=== PATIENT | female | born 1980 | race Caucasian/White ===

== ENCOUNTER 2017-02-26 15:04 | Emergency (ER) | payer MEDICAID ==
[2017-02-26 16:01] LABS: Urine Bilirubin Negative (NEGATIVE); Urine Blood 250 /ul (NEGATIVE); Urine Ketone Negative (NEGATIVE); Urine Nitrite Negative (NEGATIVE); Urine Protein Negative (NEGATIVE); Urine Specific Gravity 1.025 SP.GR. (1.005-1.010); Urine Urobilinogen Normal (NORMAL); Urine pH 5.5 pH (5.0-7.0)
[2017-02-26 16:13] LABS: Urine Appearance Cloudy; Urine Color Yellow
[2017-02-26 16:14] LABS: Urine Amorphous Sediment Few - 1+ (NONE-FEW); Urine Bacteria 1+; Urine WBC 0-5 /hpf (0-5)
--- NOTE | 2017-02-26 16:19 | ERNOTE ---
Back Pain ER HPI Time Seen by Provider: 02/26/17 15:36 Source: patient Exam Limitations: no limitations Immunizations: IMMUNIZATION HX Immunizations Up to Date Yes History of Influenza Vaccine No Allergies/Adverse Reactions: Allergies Penicillins Adverse Reaction (Verified 02/26/17 15:38) Home Medications: HOME MEDICATIONS Cyclobenzaprine HCl 10 mg PO PRN 02/26/17 [Last Taken Unknown] HYDROcodone/ACETAMINOPHEN [[place] 5-325] 1 - 2 tab PO QID PRN #12 tab 02/26/17 [ Last Taken Unknown] Hydrochlorothiazide [Hydrodiuril] 25 mg PO DAILY 02/26/17 [Last Taken Unknown] Hydroxyzine HCl 50 mg PO HS 02/26/17 [Last Taken Unknown] Levothyroxine Sodium [Levo-T] 88 mcg PO DAILY 02/26/17 [Last Taken Unknown] Lisdexamfetamine Dimesylate [Vyvanse] 40 mg PO DAILY 02/26/17 [Last Taken Unknown] Omeprazole [Prilosec] 20 mg PO DAILY 02/26/17 [Last Taken Unknown] Oxybutynin Chloride [Ditropan Xl] 10 mg PO DAILY 02/26/17 [Last Taken Unknown] Propranolol HCl 80 mg PO DAILY 02/26/17 [Last Taken Unknown] Sertraline HCl [Zoloft] 50 mg PO DAILY 02/26/17 [Last Taken Unknown] Solifenacin Succinate [Vesicare] 10 mg PO DAILY 02/26/17 [Last Taken Unknown] Sulfamethoxazole/Trimethoprim [Bactrim Ds] 1 tab PO BID #28 tab 02/26/17 [Last Taken Unknown] - Patient's Past Medical History Patient History - Medical: Seizures Patient History - Cardiac/Respiratory: Arrhythmias Patient History - Cancer: No Hx of Cancer Patient History - Surgical Procedures: Cholecystectomy, Total Knee Replacement, T & A Patient History - Other: None LMP (females 10-50): this week - Social History Living Situations: spouse Abuse History: Hx of Substance Use Smoking Status: Former smoker Alcohol Use: none Drug Use: none - Immunizations Immunizations Up to Date: Yes History of Influenza Vaccine: No ED Progress - Vital Signs Vital Signs: Vital Signs 02/26/17 15:31 Temperature 36.7 C Pulse Rate 90 Respiratory 18 Rate Blood Pressure 144/81 O2 Sat by Pulse 100 Oximetry - Progress/Reassessment Chief Complaint: Back Pain Departure Clinical Impression: Pyelonephritis - Departure Disposition: Home self-care Condition: Good Instructions: Pyelonephritis, Adult, [id number] Additional Instructions: Please drink plenty of fluids and follow-up in this ER if you don't get better in 48 hours or go see her primary care doctor. Prescriptions: HYDROcodone/ACETAMINOPHEN [[place] 5-325] 1 - 2 tab PO QID PRN #12 tab PRN Reason: Pain Sulfamethoxazole/Trimethoprim [Bactrim Ds] 1 tab PO BID #28 tab
--- OUTSIDE RECORDS SUMMARY | 2017-02-26 16:28 | XMS REPORT | Continuity of Care Document ---
:1980 Author Organization [employer] [facility] [place] [address] Care Team Providers Name Role Phone Phuong Monroy Primary Care Provider [phone] Source Comments This disclosure is being made pursuant to the [employer] program and maynot contain all information available regarding this patient.[facility] Active Allergies and Adverse Reactions Allergen Noted Date Severity Reactions Comments Penicillin G 11/01/2013 High Anaphylaxis Current Medications Be aware that medications may not be up to date as of this document. Alwaysverify current medications with the patient. Prescription Sig. Disp. Refills Start End Date Status Date omeprazole (PRILOSEC) TAKE ONE 30 capsule 5 Active 20 MG capsule CAPSULE BY 6 MOUTH ONCE DAILY IN THE MORNING BEFORE BREAKFAST levothyroxine TAKE ONE 30 tablet 5 Active (SYNTHROID, LEVOTHROID) TABLET BY 6 88 MCG tablet MOUTH ONCE DAILY (DUE FOR LABS) VESICARE 10 MG tablet TAKE ONE 30 tablet 5 Active TABLET BY 6 MOUTH ONCE DAILY hydrOXYzine pamoate TAKE THREE 90 capsule 0 Active (VISTARIL) 25 MG CAPSULES BY 7 capsule MOUTH AT BEDTIME sertraline (ZOLOFT) 50 Take 1 tablet 90 tablet 1 Active MG tablet by mouth 7 daily. Multiple Take 1 tablet Active Vitamins-Minerals by mouth (MULTIVITAMIN ADULT PO) daily. hydrochlorothiazide Take 1 tablet 30 tablet 2 Active (HYDRODIURIL) 25 MG by mouth 7 tablet daily. lisdexamfetamine Take 1 30 capsule 0 Active (VYVANSE) 50 MG capsule capsule (50 7 mg total) by mouth every morning. cyclobenzaprine TAKE ONE 30 tablet 0 Active (FLEXERIL) 10 MG tablet TABLET BY 7 MOUTH THREE TIMES DAILY NEEDED FOR MUSCLE SPASM propranolol (INDERAL) Take 1 tablet 60 tablet 1 Active 80 MG tablet by mouth 7 daily. propranolol (INDERAL) TAKE ONE 60 tablet 0 02/11/20 Discontinued 80 MG tablet TABLET BY 7 17 MOUTH ONCE DAILY cyclobenzaprine Take 1 tablet 30 tablet 0 02/11/20 Discontinued (FLEXERIL) 10 MG tablet by mouth 3 7 17 (three) times daily as needed. TAKE FOR MUSCLE SPASM Active Problems Problem Noted Date Gastroesophageal reflux disease without esophagitis 02/13/2016 Recurrent major depressive disorder, in partial remission ([facility]) 02/13/2016 Urge and stress incontinence 01/09/2016 Morbid obesity with BMI of 50.0-59.9, adult ([facility]) 03/15/2015 ADHD (attention deficit hyperactivity disorder) 12/27/2014 Insomnia 12/27/2014 Acquired hypothyroidism 06/05/2013 Overview: Identified By: Phuong Cabrales Palpitations 05/31/2013 Overview: Identified By: Phuong Monroy Anxiety state 02/24/2012 Overview: Identified By: Phuong Monroy Esophageal reflux 02/12/2009 Overview: Identified By: Surinder Umanzor Carpal tunnel syndrome 11/12/2008 Overview: Identified By: Phuong Monroy Most Recent Encounters Date Type Specialty Providers Description 02/24/2017 Telephone Family Medicine Lizeth Cole RN Care Coordination 02/10/2017 Refill Family Medicine Phuong Cabrales, G[employer]MENT [employer]ER 02/10/2017 Refill Family Medicine Phuong Monroy MD 01/19/2017 Telephone Family Medicine Phuong Cabrales, Medication Refill [facility] 12/01/2016 Office Visit Family Medicine Phuong Monroy MD Morbid obesity with BMI of 50.0-59.9, adult ([facility]) (Primary Dx); Attention deficit hyperactivity disorder (ADHD), combined type Social History Tobacco Use Types Packs/Day Years Used Date Former Smoker Quit: 09/27/2011 Smokeless Tobacco: Never Used Alcohol Use Drinks/Week oz/Week Comments Yes occasionally Last Filed Vital Signs Vital Sign Reading Time Taken Blood Pressure 116/74 12/01/2016 10:38 AM HOME STAGER Pulse 84 12/01/2016 10:38 AM HOME STAGER Temperature 36.7 C (98 F) 12/01/2016 10:38 AM HOME STAGER Respiratory Rate 20 12/01/2016 10:38 AM HOME STAGER Height 1.651 m (5' 5") 12/01/2016 10:38 AM HOME STAGER Weight 140.388 kg (309 lb 8 oz) 12/01/2016 10:38 AM HOME STAGER Body Mass Index 51.5 12/01/2016 10:38 AM HOME STAGER Oxygen Saturation 98% 12/01/2016 10:38 AM HOME STAGER Plan of Care Patient Goal Type Goal Exercise Exercise 3x per week (30 min per time) Blood Pressure Blood Pressure below 140/90 Health Maintenance Due Date Last Done Comments Tetanus/Pertussis (1 - Tdap) 1998 Pap Smear 2000 Influenza Immunization (#1) 2016 Results from Last 3 Months Not on file
[2017-02-26] MEDS ORDERED: KETOROLAC TROMETHAMINE 60 MG/2 ML VIAL IM ONE ×2 (16:29→16:32)
[2017-02-26 16:42] VITALS: BP 140/88
== END 2017-02-26 16:46 | disposition home or self-care (01) ==
LOC: ER 15:04
DX: N10 Acute pyelonephritis (principal); G40.409 Other generalized epilepsy and epileptic syndromes, not intractable, without status epilepticus

== ENCOUNTER 2017-06-11 10:57 | Emergency (ER) | payer MEDICAID ==
--- NOTE | 2017-06-11 11:38 | ERNOTE ---
GI Bleeding/Rectal Pain ER Date of Service: 06/11/17 Presenting Symptoms: rectal bleeding Time Seen by Provider: 06/11/17 11:26 Source: patient, family, RN notes reviewed Exam Limitations: no limitations Immunizations: IMMUNIZATION HX Immunizations Up to Date Yes History of Influenza Vaccine No Allergies/Adverse Reactions: Allergies Penicillins Adverse Reaction (Verified 06/11/17 11:27) Home Medications: HOME MEDICATIONS Amitriptyline HCl [Elavil] 10 mg PO HS 06/11/17 [Last Taken Unknown] Ferrous Sulfate 325 mg PO DAILY 06/11/17 [Last Taken Unknown] Hydrochlorothiazide [Hydrodiuril] 25 mg PO DAILY 06/11/17 [Last Taken Unknown] Hydrocortisone Acetate [Anusol Hc Suppository] 25 mg RC BID #12 supp.rect [Last Taken Unknown] Levothyroxine Sodium [Synthroid] 50 mcg PO DAILY 06/11/17 [Last Taken Unknown] Omeprazole 20 mg PO DAILY 06/11/17 [Last Taken Unknown] Sertraline HCl [Zoloft] 50 mg PO DAILY 06/11/17 [Last Taken Unknown] Narrative: 36 y/o female presents to the ED with rectal bleeding that began yesterday. She reports passing a large amount of blood and clots in the toilet when she had a bowel movement. She has been having loose stools for 3 days. She has also been having bloating and early satiety for over a month. She has continued to pass blood today, at times without stool. She denies rectal pain, but reports pressure and feeling like she has to have a bowel movement. Date (Duration): 06/10/17 Timing: intermittent Quality/Severity: Present: cramping Nausea/Vomiting: Present: other - Nausea, no vomiting Abdominal Pain: Present: diffuse Rectal Bleeding: Present: without stool, blood mixed with stool Associated Symptoms: Denies: maroon stools, black stools, tarry stools, constipation/hard stools, rectal pain Prior Treament: Denies: recently seen, similar symptoms before Review of Systems - Review of Systems Constitutional: Present: malaise. Absent: recent illness, fever, chills EYE: Present: no symptoms reported ENT: Present: no symptoms reported Respiratory: Absent: shortness of breath, cough Cardiology: Absent: chest pain, syncope Gastrointestinal/Abdominal: Present: nausea, diarrhea, abdominal pain, eating less, drinking less. Absent: vomiting, constipation Genitourinary: Absent: dysuria, decreased urinary output Musculoskeletal: Absent: muscle pain, joint pain Skin: Absent: rash, lesions Neurological: Absent: headache, dizziness/light-headedness Endocrine: Present: no symptoms reported Hematologic/Lymphatic: Absent: easy bruising, easy bleeding Psych: Present: no symptoms reported - Patient's Past Medical History Patient History - Medical: Bipolar, Seizures Patient History - Cardiac/Respiratory: Arrhythmias, Hypertension Patient History - Cancer: No Hx of Cancer Patient History - Surgical Procedures: Cholecystectomy, Total Knee Replacement, Tubal Ligation, T & A Patient History - Other: None LMP (females 10-50): s/p tubal ligation LMP (Calendar): 05/10/17 - Social History Living Situations: home Abuse History: Hx of Substance Use Psych History: Hx of Bipolar Disorder Smoking Status: Never smoker Alcohol Use: none Drug Use: none - Immunizations Immunizations Up to Date: Yes History of Influenza Vaccine: No Physical Exam - Physical Exam General Appearance: Present: wd/wn, alert, anxious, obese Neck: Present: normal inspection, nontender, supple Respiratory: Present: no respiratory distress, normal breath sounds, no accessory muscle use, lungs clear Cardiovascular/Chest: Present: regular rate, rhythm, no murmur, normal peripheral pulses Gastrointestinal/Abdominal: Present: normal bowel sounds, soft, tenderness - Mild, diffuse, distended - Obese. Absent: guarding, rebound Rectal Exam: Present: normal rectal tone, tenderness, other - blood present on glove, rectal tissue appears inflammed with anascope exam. Absent: heme negative stool, mass, hemorrhoids Back Exam: Present: normal inspection, no CVA tenderness Extremity Exam: Present: normal inspection, normal range of motion, no edema Neurological Exam: Present: alert, oriented, normal mood/affect, no motor/ sensory deficits Skin Exam: Present: normal color, warm/dry ED Progress - Results and Orders Patient's Lab Results:: I have reviewed the patient's lab results. - Vital Signs Patient's Vital Signs:: I have reviewed the patient's vital signs. Vital Signs: Vital Signs 06/11/17 11:22 Temperature 37.0 C Respiratory 16 Rate Blood Pressure 158/94 O2 Sat by Pulse 100 Oximetry - CT/Ultrasound CT/Ultrasound Narrative: ENHANCED CT SCAN OF THE ABDOMEN AND ENHANCED CT SCAN OF THE PELVIS. COMPARISON: NONE Technique: Initially, multiple axial images were obtained through the abdomen during the portal venous phase of enhancement. Delayed images were obtained through the abdomen and pelvis. Coronal reconstructions were obtained. Oral contrast was utilized. Findings: The patient has a large body habitus. The visualized lung bases are clear. The liver is homogeneous in appearance and I do not see evidence for a focal defect or intrahepatic duct dilatation. The patient is status post cholecystectomy. The spleen is of normal size and is homogenous in appearance. The adrenal glands are within normal limits. There is questionable mild peripancreatic inflammation around the pancreatic head. The pancreatic body and tail appear normal. I do not see evidence for dilatation of the pancreatic duct or pseudocyst formation. The abdominal aorta is of normal caliber. I do not see evidence for retroperitoneal adenopathy on this study. The right and left renal parenchyma is normal in appearance. The kidneys demonstrate bilateral symmetric excretion of contrast and the ureters are of normal caliber on delayed images. The stomach is partially distended and is grossly normal appearance. The small bowel is of normal caliber. A small appendix is identified and appears normal. The colon is suboptimally evaluated, but I'm not convinced of a definable colon lesion. I'm not convinced of diverticulosis or diverticulitis. CT scan of pelvis: The urinary bladder is poorly distended and is grossly normal in appearance. A normal appearing uterus is seen. The patient is status post tubal ligation. The ovaries are identified and appear normal by CT scan. I do not see evidence for free fluid, mass, or adenopathy pelvis. IMPRESSION: 1. LARGE BODY HABITUS. 2. QUESTIONABLE MILD PERIPANCREATIC INFLAMMATION IN THE REGION OF THE PANCREATIC HEAD; CORRELATION FOR PANCREATITIS IS RECOMMENDED. 3. STATUS POST TUBAL LIGATION AND CHOLECYSTECTOMY. 4. AN ETIOLOGY FOR RECTAL BLEEDING IS NOT DETERMINED THIS STUDY AND CLINICAL CORRELATION REQUIRED. Electronically signed by Josué Núñez M.D.. - Progress/Reassessment Chief Complaint: Rectal Bleeding Progress:: Improved Progress Note-Subjective: 06/11/17 15:[address] scan. Discussed results. Amylase and lipase added, awaiting those results. Patient has not had any stools or further bleeding in dept. Plan - Plan Plan: Normal amylase and lipase, no correlation to pancreatic inflammation seen on CT. No further rectal bleeding or stools while in dept. Will treat for proctitis. Discussed f/u for ongoing symptoms. Departure Clinical Impression: Proctitis - Departure Disposition: Home Follow Up Needed Condition: Stable Instructions: Form - Excuse from Work, School, or Physical Activity, Proctitis Additional Instructions: Clear liquids for today, progress to soft bland diet as tolerated Return for worsening bleeding, fever, abdominal pain, otherwise follow up with your PCP for ongoing bloating/nausea Referrals: Edilma Davis FNP [Primary Care Provider] - Prescriptions: Hydrocortisone Acetate [Anusol Hc Suppository] 25 mg RC BID #12 supp.rect
[2017-06-11 11:52] LABS: Hematocrit 35.7 % (37.0-47.0); Hemoglobin 11.6 gm/dL (12.5-16.0); Mean Corpuscular Hemoglobin 23.4 pg (27-31); Mean Corpuscular Hgb Conc 32.5 g/dl (32-36); Neutrophil # 9.5 K/mm3 (1.3-6.0); Neutrophil % 71.9 % (42-75.0); Platelet Count 404 K/mm3 (150-450); Red Blood Count 4.96 M/mm3 (4.2-5.4); Red Cell Distribution Width 17.1 % (11.5-14.0); White Blood Count 13.2 K/mm3 (4.0-10.5)
[2017-06-11 12:00] LABS: Prothrombin Time (Patient) 10.8 Seconds (9.4-11.4)
[2017-06-11 12:01] LABS: INR 1.04 INR (0.90-1.10); Partial Thrombolplastin Time 29.6 Seconds (24-32)
[2017-06-11 12:05] LABS: Albumin * 3.5 gm/dl (3.4-5.0); Anion Gap 11.5 mmol/L (6.8-13.8); BUN/Creatinine Ratio 11.5 (9.0-21.6); Bilirubin, Total 0.4 mg/dL (0.0-1.1); Ca. Corrected For Albumin 9.2 mg/dL (8.4-10.2); Calcium * 9.1 mg/dL (7.9-10.9); Carbon Dioxide 30.4 mmol/L (24-32.6); Potassium 2.9 mmol/L (3.4-4.6); Total Protein 8.5 gm/dL (6.2-8.2)
[2017-06-11] MEDS ORDERED: KETOROLAC TROMETHAMINE 30 MG/ML VIAL IV ONE (12:14)
[2017-06-11] MEDS ORDERED: DIATRIZOATE MEGLUMINE, SODIUM 30 ML BTL ONE (12:14)
[2017-06-11] MEDS ORDERED: ONDANSETRON HCL/PF 2 MG/ML VIAL IV ONE (12:14)
[2017-06-11] MEDS ORDERED: DIATRIZOATE MEGLUMINE, SODIUM 30 ML BTL PO ONE (12:17)
[2017-06-11] MEDS ORDERED: KETOROLAC TROMETHAMINE 30 MG/ML VIAL ONE (12:19)
[2017-06-11] MEDS ORDERED: ONDANSETRON HCL/PF 2 MG/ML VIAL ONE (12:19)
[2017-06-11] MEDS ORDERED: METOCLOPRAMIDE HCL 5 MG/ML VIAL IV ONE (13:53)
[2017-06-11] MEDS ORDERED: METOCLOPRAMIDE HCL 5 MG/ML VIAL ONE (13:54)
[2017-06-11 14:49] VITALS: BP 144/83
[2017-06-11 15:21] LABS: Amylase * 33 U/L (25-115); Lipase 99 U/L (73-393)
== END 2017-06-11 15:58 | disposition home or self-care (01) ==
LOC: ER 10:57
DX: K62.89 Other specified diseases of anus and rectum (principal)
CPT/HCPCS: 36415; 74177; 80053; 82150; 82272; 83690; 85025; 85610; 85730; 96374; 96375; 99284; J2405

== ENCOUNTER 2017-11-14 17:24 | Emergency (ER) | payer MEDICAID ==
[2017-11-14] MEDS ORDERED: diphenhydrAMINE HCL 50 MG/ML VIAL IM ONE (18:12)
[2017-11-14] MEDS ORDERED: METOCLOPRAMIDE HCL 5 MG/ML VIAL IM ONE (18:12)
[2017-11-14] MEDS ORDERED: METOCLOPRAMIDE HCL 5 MG/ML VIAL ONE ×2 (18:24→19:26)
[2017-11-14] MEDS ORDERED: diphenhydrAMINE HCL 50 MG/ML VIAL ONE (18:24)
--- NOTE | 2017-11-14 18:48 | ERNOTE ---
<Luda Saleh - Last Filed: 11/14/17 18:43> Headache ER HPI - Narrative Date of Service: 11/14/17 - General Presenting Symptoms: headache Time Seen by Provider: 11/14/17 17:52 Source: patient Exam Limitations: no limitations - Immun/Allergies/Home Medications Immunizations: IMMUNIZATION HX Immunizations Up to Date Yes History of Influenza Vaccine No Allergies/Adverse Reactions: Allergies Penicillins Adverse Reaction (Verified 11/14/17 17:41) Home Medications: HOME MEDICATIONS Amitriptyline HCl [Elavil] 10 mg PO HS 06/11/17 [Last Taken Unknown] Ferrous Sulfate 325 mg PO DAILY 06/11/17 [Last Taken Unknown] Hydrochlorothiazide [Hydrodiuril] 25 mg PO DAILY 06/11/17 [Last Taken Unknown] Hydrocortisone Acetate [Anusol Hc Suppository] 25 mg RC BID #12 supp.rect [Last Taken Unknown] Levothyroxine Sodium [Synthroid] 50 mcg PO DAILY 06/11/17 [Last Taken Unknown] Omeprazole 20 mg PO DAILY 06/11/17 [Last Taken Unknown] Sertraline HCl [Zoloft] 50 mg PO DAILY 06/11/17 [Last Taken Unknown] Promethazine HCl [Phenergan (Promethazine)] 25 mg PO QID PRN #20 tab 11/14/17 [ Last Taken Unknown] - Pain Pain Score: 10 - History of Present Illness Narrative: Pt presents with a migraine that began yesterday morning upon waking up. She has a history of chronic migraines which she states are usually tolerable and she has not needed treatment chronic treatment for. She has not taken anything at home for symptoms prior to arrival. She describes the pain as constant, 10/ 10 with associated nausea, photophobia, and dizziness. Date (Duration): 11/13/17 Time (Timing): 08:00 Activity at onset: other - upon awakening Timing of Headache: abrupt, still present, constant, persistent Context Headache: Present: new onset Severity Maximum: Present: severe Severity-Currently: Present: severe Headache frequency: Present: chronic headaches, similar to previous headache Modifying Factors - (Improves): Reports: rest, cold therapy Modifying Factors - (Worsens): Reports: movement, exposure to light Associated Symptoms: Reports: nausea, sweating, fatigue, light-headedness, dizziness Exacerbated by:: Reports: light, noise, movement, position Prior Treament: Reports: similar symptoms before Review of Systems - Review of Systems Constitutional: Present: See HPI EYE: Present: no symptoms reported ENT: Present: no symptoms reported Respiratory: Present: no symptoms reported Cardiology: Present: no symptoms reported Gastrointestinal/Abdominal: Present: no symptoms reported Genitourinary: Present: no symptoms reported Musculoskeletal: Present: no symptoms reported Skin: Present: no symptoms reported Neurological: Present: See HPI, headache, dizziness/light-headedness Endocrine: Present: no symptoms reported Hematologic/Lymphatic: Present: no symptoms reported Psych: Present: no symptoms reported - Patient's Past Medical History Patient History - Medical: Bipolar, Seizures Patient History - Cardiac/Respiratory: Arrhythmias, Hypertension Patient History - Cancer: No Hx of Cancer Patient History - Surgical Procedures: Cholecystectomy, Total Knee Replacement, Tubal Ligation, T & A Patient History - Other: None - Social History Abuse History: Hx of Substance Use Psych History: Hx of Bipolar Disorder Smoking Status: Never smoker Alcohol Use: none Drug Use: none - Immunizations Immunizations Up to Date: Yes History of Influenza Vaccine: No Physical Exam - Physical Exam General Appearance: Present: wd/wn, alert, mild distress Head Exam: Present: normal inspection Eye Exam: Normal inspection: bilateral Ears, Nose, Throat: Present: normal ENT inspection Neck: Present: normal inspection, nontender Respiratory: Present: no respiratory distress, normal breath sounds, no accessory muscle use, chest nontender, lungs clear Cardiovascular/Chest: Present: regular rate, rhythm, no murmur, normal peripheral pulses Peripheral Pulses: N=norm/S=strong/W=weak/B=bound/A=absent: Radial (R): Normal, Radial (L): Normal Gastrointestinal/Abdominal: Present: normal bowel sounds, nontender, nondistended, soft, no organomegaly Back Exam: Present: normal inspection, normal range of motion, no CVA tenderness , no vertebral tenderness Extremity Exam: Present: normal inspection, non-tender, normal range of motion, no edema Neurological Exam: Present: alert, oriented, normal mood/affect, no motor/ sensory deficits Skin Exam: Present: normal color, warm/dry Lymphatic Exam: Present: no adenopathy ED Progress - Vital Signs Patient's Vital Signs:: I have reviewed the patient's vital signs. Vital Signs: Vital Signs 11/14/17 17:31 Temperature 36.4 C L Pulse Rate 79 Respiratory 16 Rate Blood Pressure 157/91 O2 Sat by Pulse 100 Oximetry - Progress/Reassessment Chief Complaint: Headache Departure Clinical Impression: Migraine headache - Departure Disposition: Home self-care Condition: Good Instructions: Recurrent Migraine Headache, [id number] Language: Citizen [place] Additional Instructions: If you feel worse or the headache return come back to the ED for evaluation. Referrals: Edilma Davis FNP [Primary Care Provider] - Prescriptions: Promethazine HCl [Phenergan (Promethazine)] 25 mg PO QID PRN #20 tab PRN Reason: nausea/vomiting <Rupesh Hawkins - Last Filed: 11/15/17 07:00> Headache ER HPI - Immun/Allergies/Home Medications Immunizations: IMMUNIZATION HX Immunizations Up to Date Yes History of Influenza Vaccine No ED Progress - Vital Signs Vital Signs: Vital Signs 11/14/17 17:31 Temperature 36.4 C L Pulse Rate 79 Respiratory 16 Rate Blood Pressure 157/91 O2 Sat by Pulse 100 Oximetry - Progress/Reassessment Progress:: Improved Progress Note-Subjective: 11/14/17 19:53 This headache is beginning to resolve and now is rated 6 out of 10 after IV medications were given. 11/14/17 20:11 Headache is completely resolved and feels much better. 11/14/17 20:31 Is able to stand, ambulate independently, and nose is normal, [id number] was normal also. As the headache is completely resolved and was neurologically intact and at her baseline. The CT was canceled.
[2017-11-14] MEDS ORDERED: DEXAMETHASONE SODIUM PHOSPHATE 10 MG/ML VIAL IV ONE (19:12)
[2017-11-14] MEDS ORDERED: METOCLOPRAMIDE HCL 5 MG/ML VIAL IV ONE (19:12)
[2017-11-14] MEDS ORDERED: PROMETHAZINE HCL 25 MG/ML AMPUL IM ONE (19:12)
[2017-11-14] MEDS ORDERED: KETOROLAC TROMETHAMINE 30 MG/ML VIAL IV ONE (19:13)
[2017-11-14] MEDS ORDERED: ACETAMINOPHEN 500 MG TABLET PO ONE (19:13)
[2017-11-14] MEDS ORDERED: NORMAL SALINE 1,000 ML IV ONE (19:16)
[2017-11-14] MEDS ORDERED: KETOROLAC TROMETHAMINE 30 MG/ML VIAL ONE (19:25)
[2017-11-14] MEDS ORDERED: DEXAMETHASONE SODIUM PHOSPHATE 10 MG/ML VIAL ONE (19:25)
[2017-11-14] MEDS ORDERED: PROMETHAZINE HCL 25 MG/ML AMPUL ONE (19:26)
[2017-11-14 21:14] VITALS: BP 132/70
== END 2017-11-14 21:00 | disposition home or self-care (01) ==
LOC: ER 17:24
DX: G43.909 Migraine, unspecified, not intractable, without status migrainosus; I10 Essential (primary) hypertension